=== PATIENT | male | born 1955 | race Caucasian/White ===

== ENCOUNTER 2016-10-02 21:11 | Emergency (ER) | payer MEDICARE ==
[~2016-10-02] VITALS: Ht 188 cm; Wt 56.5 kg
[~2016-10-02 21:11] MED LIST: ALAV10TA10 PO; AMLO10TA2 PO; ASPI81CH CHEW; BUSP10TA PO; D 10CHW; DENT1.1G; DIVA500T3 PO; GABA600T PO; GLUC4CHW CHEW; IPRAAER INH; LACTCHW3 CHEW; LAMO200T PO; LANS15CA PO; LANTUS2P; LOSA100T PO; METO100T PO; MOBI15TA PO; MULT1TAB84 PO; NIAC500T18; NOVOINJ3 SQ; ROBA500T PO; TEARSOL; TEARSOL10; TERA10CA3 PO; TERA5CAP3 PO; UREA1CRE; [UNRECOGNIZED DRUG - CODE] PO; [UNRECOGNIZED DRUG - CODE] SWISH-SPIT
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
[2016-10-02 21:36] VITALS: BP 134/65; PULSE 67; RESP 19; TEMP 98.6; O2SAT 100
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
[2016-10-02] MEDS ORDERED: MORPHINE SULFATE 4 MG/ML INJ IV PUSH ONE (23:15)
[2016-10-03] MEDS ORDERED: SODIUM CHLOR 0.9% 1000 ML INJ 1,000 ML IV SCH (00:11)
[2016-10-03] MEDS ORDERED: SODIUM CHLORIDE 0.9% FLUSH 5 ML FLUSH IV FLUSH PRN (00:15)
[2016-10-03 02:21] LABS: AUTOMATED NEUTROPHIL # 3.2 TH/MM3 (1.8-7.7); BASOPHIL % 0.3 % (0.0-2.0); EOSINOPHIL % 0.2 % (0.0-4.0); HEMATOCRIT 31.2 % (39.0-51.0); HEMO FLAGS DIFF FINAL; LYMPH % 6.5 % (9.0-44.0); LYMPHOCYTE # 0.2 TH/MM3 (1.0-4.8); MEAN CORPUSCULAR HEMOGLOBIN 31.4 PG (27.0-34.0); MEAN CORPUSCULAR HGB CONC 35.3 % (32.0-36.0); PLATELET COUNT 166 TH/MM3 (150-450); RED BLOOD COUNT 3.51 MIL/MM3 (4.50-5.90); RED CELL DISTRIBUTION WIDTH 15.7 % (11.6-17.2); WHITE BLOOD COUNT 3.8 TH/MM3 (4.0-11.0)
[2016-10-03 02:33] LABS: INTERNATIONAL NORMALIZED RATIO 1.1 RATIO; PROTHROMBIN TIME - PATIENT 12.2 SEC (9.8-11.6)
[2016-10-03 03:21] LABS: BICARBONATE 26.8 MEQ/L (21.0-32.0); POTASSIUM 3.6 MEQ/L (3.5-5.1)
[2016-10-03 03:44] LABS: CKMB 10.3 NG/ML (0.5-3.6)
[2016-10-03 04:05] VITALS: BP 158/82; PULSE 78; RESP 21; O2SAT 98
[2016-10-03 04:55] LABS: BLOOD, URINE NEG (NEG); GLUCOSE,URINE NEG (NEG); HYALINE CAST, URINE 1 /lpf (RARE); KETONE, URINE 80 mg/dL (NEG); MUCUS URINE FEW /lpf (OCC); NITRITE,URINE NEG (NEG); URINE COLOR YELLOW (YELLW/STRAW)
[2016-10-03 05:03] LABS: COMMENT (UR) CATH-CULT NOT IND; CULTURE IF INDICATED CATH CULTURE NOT IND
[2016-10-03] MEDS ORDERED: SODIUM CHLOR 0.9% 1000 ML INJ 1,000 ML IV ONE (05:30)
--- NOTE | 2016-10-03 05:41 | RADRPT ---
EXAM DATE/TIME: 10/03/2016 04:49 [facility] COMPARISON: CT BRAIN W/O CONTRAST, February 26, 2016, 17:30. INDICATIONS : Altered mental status. RADIATION DOSE: 56.35 CTDIvol (mGy) MEDICAL HISTORY : Cardiovascular disease. Chronic obstructive pulmonary disease. Myocardial infarction.Hypertension SURGICAL HISTORY : Cholecystectomy. ENCOUNTER: Initial ACUITY: 1 day PAIN SCALE: Non-responsive LOCATION: cranial TECHNIQUE: Multiple contiguous axial images were obtained of the head. Using automated exposure control and adj ustment of the mA and/or kV according to patient size, radiation dose was kept as low as reasonably a chievable to obtain optimal diagnostic quality images. FINDINGS: CEREBRUM: The ventricles are normal for age. No evidence of midline shift, mass lesion, hemorrhage or acute in farction. No extra-axial fluid collections are seen. POSTERIOR FOSSA: The cerebellum and brainstem are intact. The 4th ventricle is midline. The cerebellopontine angle i s unremarkable. EXTRACRANIAL: The visualized portion of the orbits is intact. SKULL: The calvaria is intact. No evidence of skull fracture. CONCLUSION: Normal examination. Mild atrophy is present Glen Terrazas MD on October 03, 2016 at 5:39 Board Certified Radiologist. This report was verified electronically.
[2016-10-03 07:30] VITALS: BP 155/77; PULSE 72; RESP 18; O2SAT 95
[2016-10-03 10:15] VITALS: BP 149/75; PULSE 70; RESP 18; O2SAT 96
[2016-10-03 12:12] VITALS: BP 151/79
== END 2016-10-03 12:15 | disposition home or self-care (01) ==
LOC: NEPE 21:11
DX: G89.29 Other chronic pain (principal); C76.0 Malignant neoplasm of head, face and neck; R54 Age-related physical debility; I10 Essential (primary) hypertension; I25.2 Old myocardial infarction; F43.10 Post-traumatic stress disorder, unspecified; I50.9 Heart failure, unspecified
CPT/HCPCS: 70450; 73030; 80048; 81001; 82140; 82550; 82552; 83605; 85025; 85610; 87040; 87186; 87205; 96374; 99285; J2270; J7030